=== PATIENT | female | born 1995 | race Caucasian/White ===

== ENCOUNTER 2021-09-14 00:37 | Emergency (ER) | payer BC ==
[~2021-09-14] VITALS: Ht 160 cm; Wt 49.9 kg
--- NOTE | 2021-09-14 07:24 | EKG ---
[facility] [address] [facility] [place] [address] Signed Normal sinus rhythm with sinus arrhythmia Incomplete right bundle branch block Borderline ECG No previous ECGs available Confirmed by SHARLA ROBLEDO MD ([id number] on 09/14/2021 7:24:12 AM Electronically Signed By: SHARLA ROBLEDO MD 09/14/21 0724 PATIENT NAME: CANDIE NIELSEN WICHO Electrocardiogram DATE OF : [birth year] PHYSICIAN: SHARLA ROBLEDO MD REPORT #: [id number] REPORT IS CONFIDENTIAL AND NOT TO BE RELEASED WITHOUT AUTHORIZATION
== END 2021-09-14 01:52 | disposition home or self-care (01) ==
LOC: ED 00:37
DX: R07.89 Other chest pain (principal); Z86.16 Personal history of COVID-19
CPT/HCPCS: 71046; 93005; 93010; 99285-25